=== PATIENT | female | born 1970 | race Hispanic/Latino ===

== ENCOUNTER 2022-09-24 18:04 | Emergency (ER) | payer OTHER ==
[~2022-09-24] VITALS: Ht 167.6 cm; Wt 75.1 kg
[2022-09-24] MEDS ORDERED: COZAAR25 MG PO (18:22)
[2022-09-24] MEDS ORDERED: LIPITOR40 MG PO (18:22)
[2022-09-24] MEDS ORDERED: METFORMIN HCL500 M2 PO (18:22)
[2022-09-24] MEDS ORDERED: MAXITROL EYE DRO5 ML OPTH (18:52)
[2022-09-24 19:18] VITALS: BP 156/99
== END 2022-09-24 19:19 | disposition home or self-care (01) ==
LOC: ED 18:04
DX: H20.9 Unspecified iridocyclitis (principal); I10 Essential (primary) hypertension; E11.9 Type 2 diabetes mellitus without complications; Z79.84 Long term (current) use of oral hypoglycemic drugs; Z79.899 Other long term (current) drug therapy
CPT/HCPCS: 96372; 99283; J0360

== ENCOUNTER 2022-11-27 16:06 | Emergency (ER) | payer OTHER ==
[~2022-11-27] VITALS: Ht 167.6 cm; Wt 74.8 kg
--- OUTSIDE RECORDS SUMMARY | ~2022-11-27 | XMS | Continuity of Care Document ---
Demographics + + + | Address | [address] | | | [place] [address] | + + + | Preferred Language | Unknown | + + + | Marital Status | Never | + + + | Religion Affiliation | Unknown | + + + | Race | White | + + + | Ethnic Group | or | + + + Author + + + | Author | [facility] | + + + | Organization | [facility] | + + + | Address | [address] | | | [place] [address] | + + + | Phone | | + + + Care Team Providers + + + + | Care Supervisor Wet End Name | Role | Phone | + + + + Unavailable | Unavailable | + + + + Unavailable | Unavailable | + + + + Allergies No information. Encounters No information. Functional Status No information. Immunizations No information. Medications No information. Problems + + + + | date | description | facility | + + + + | 2022-09-24 18:05 | TYPE 2 DIABETES MELLITUS | [facility] | | | WITHOUT COMPLICATIONS | | + + + + | 2022-09-24 18:05 | UNSPECIFIED IRIDOCYCLITIS | [facility] | + + + + | 2022-09-24 18:05 | OCULAR PAIN, LEFT EYE | [facility] | + + + + | 2022-09-24 18:05 | Essential (primary) | [facility] | | | hypertension | | + + + + | 2022-09-24 18:05 | SEAM PRESS OPERATOR (CURRENT) USE OF | [facility] | | | ORAL HYPOGLYCEMIC DRUGS | | + + + + | 2022-09-24 18:05 | OTHER CORRECTION (CURRENT) | [facility] | | | DRUG THERAPY | | + + + + | 2022-11-11 15:13:59 | Gaps In Care Outreach | [facility] | + + + + Procedures No information. Results/Labs No information. Social History +--------+ + + | date | description | facility | +--------+ + + Vital Signs No information."
--- OUTSIDE RECORDS SUMMARY | ~2022-11-27 | XMS | Continuity of Care Document ---
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 Results/Labs No information. Social History +--------+ + + | date | description | facility | +--------+ + + Vital Signs No information."
[~2022-11-27 16:06] MED LIST: COZAAR25 MG PO; LIPITOR40 MG PO; MAXITROL EYE DRO5 ML OPTH; METFORMIN HCL500 M2 PO
[2022-11-27 16:40] VITALS: BP 146/97
[2022-11-27] MEDS ORDERED: NORVASC10 MG PO (16:40)
== END 2022-11-27 16:40 | disposition home or self-care (01) ==
LOC: ED 16:06
DX: I10 Essential (primary) hypertension (principal); Z79.899 Other long term (current) drug therapy
CPT/HCPCS: 99283

== ENCOUNTER 2024-06-26 21:37 | Inpatient (IN) | payer OTHER ==
[~2024-06-26] VITALS: Ht 167.6 cm; Wt 87.4 kg
[~2024-06-26 21:37] MED LIST changes: +NORVASC10 MG PO
[2024-06-26] MEDS ORDERED: FUROSEMIDE80 MG PO (21:56)
[2024-06-26] MEDS ORDERED: POTASSIUM CHLO20 ME2 PO (21:57)
[2024-06-26 22:11] LABS: BASOPHILS 0.8 % (0-2); EOSINOPHILS 2.8 % (0-6); HEMATOCRIT 29.7 % (35.0-50.0); LYMPHOCYTES 26.6 % (24-44); MCH 25.8 (27-36); MCHC 33.8 g/dl (30-36); MCV 76.3 fl (81-99); MONOCYTES 9.2 % (0-12); NEUTROPHILS 60.6 % (39-80); PLATELET COUNT 269 K/uL (140-440); RBC 3.89 M/ul (4.3-5.7); RDW 15.7 (10.5-15.0)
[2024-06-26 22:38] LABS: ALBUMIN/GLOBULIN RATIO 0.41 (1.1-2.4); ANION GAP 9.9 (7-21); BILIRUBIN, TOTAL 0.3 mg/dL (0.2-1.0); BUN/CREATININE RATIO 15.97 (6.0-28.6); CALCIUM 8.4 mg/dL (8.5-10.1); CREATININE, SERUM 1.69 mg/dL (0.55-1.02); MAGNESIUM 2.1 mg/dL (1.8-2.4); POTASSIUM 3.9 mmol/L (3.5-5.1); PROTEIN, TOTAL 6.9 g/dL (6.4-8.2)
[2024-06-26] MEDS ORDERED: FUROSEMIDE 100 MG/10 ML VIAL IV ONE (22:45)
[2024-06-27] VITALS (27 sets, daily range): BP systolic 132–202; BP diastolic 72–100
--- NOTE | 2024-06-27 03:30 | NUR ---
PATIENT ARRIVED TO THE UNIT VIA STRETCHER. ABLE TO TRANSFER TO THE BED WITH 1PA. PATIENT AMBULATES WELL BUT REPORTS SOME DIFFICULTY DUE TO SWELLING AND PAIN IN HER LEGS. PATIENT IS AAOX. MILD SOB WITH ACTIVITY. TOLERATING 2L NC, TITRATED TO 1L NC. PATIENT HAS CRACKLES IN EDUARDO LOWER LOBES. OCCATIONAL NON-PRODUCTIVE COUGH. ABD IS TIGHT, BOWEL SOUNDS ACTIVE. DENIED NAUSEA. EDUARDO LOWER LEG EDEMA NOTED FROM KNEES DOWN. CMS INTACT. EDUARDO UPPER EXTREMITITES ARE SWOLLEN, LEFT MORE SO THAN THE RIGHT. PATIENT REPORTS SMALL IMPROVEMENT IN TIGHTNESS AND PAIN AFTER RECEIVING LASIX IN ED. IS AT BEDSIDE. ORIENTED PATIENT TO THE ROOM AND DISCUSSED PLAN OF CARE. PATIENT DENIED FURTHER NEEDS. CALL LIGHT IN REACH.
--- NOTE | 2024-06-27 05:39 | NUR ---
UPDATE PROVIDED TO
[2024-06-27] MEDS ORDERED: BUMETANIDE 1 MG/4 ML VIAL IV ONE ×2 (05:45→16:15)
[2024-06-27 06:00] LABS: BASOPHILS 0.6 % (0-2); EOSINOPHILS 3.8 % (0-6); HEMATOCRIT 27.4 % (35.0-50.0); HEMOGLOBIN 9.2 g/dL (12.0-18.0); LYMPHOCYTES 24.5 % (24-44); MCH 25.7 (27-36); MCHC 33.8 g/dl (30-36); MCV 76.1 fl (81-99); MONOCYTES 9.1 % (0-12); PLATELET COUNT 229 K/uL (140-440); RBC 3.59 M/ul (4.3-5.7); RDW 15.6 (10.5-15.0)
--- NOTE | 2024-06-27 06:00 | NUR ---
PATIENT UP TO THE BATHROOM. REQUIRES 1PA TO STEADY HERSELF. PATIENT VOIDED AND RETURNED TO SIT AT EDGE OF BED. DISCUSSED PLAN FOR ORDERED BUMEX AND PROVIDED EDUCATION. ALSO DISCUSSED OPTION TO USE PURE WIC WHILE PATIENT IS RESTING DUE TO HISTORY OF URGENCY AND CURRENT DIURETIC. PATIENT AGREES. PATIENT SAT UP TO EDGE OF BED FOR ABOUT 10 MINS; DURING THIS TIME PATIENT WAS TOLERATING ROOM AIR. Sp02 90-94%. PATIENT DENIED FEELING SOB. WHEN PATIENT LAID IN BED, WITH HOB AT 40 DEGREES. PATIENT DID DESAT TO 86 - 88%. 1L NC PLACED BACK ON PATIENT. PUREWIC PLACED PER PROTOCOL. PATIENT PROVIDED WITH SOME HOT TEA PER REQUEST. DENIED OTHER NEEDS. CALL LIGHT IN REACH.
[2024-06-27 06:19] LABS: ALBUMIN 1.8 g/dL (3.4-5.0); ALBUMIN/GLOBULIN RATIO 0.41 (1.1-2.4); ANION GAP 5.6 (7-21); BILIRUBIN, TOTAL 0.3 mg/dL (0.2-1.0); BUN/CREATININE RATIO 16.77 (6.0-28.6); CALCIUM 8.2 mg/dL (8.5-10.1); CREATININE, SERUM 1.49 mg/dL (0.55-1.02); POTASSIUM 3.6 mmol/L (3.5-5.1); PROTEIN, TOTAL 6.2 g/dL (6.4-8.2)
--- NOTE | 2024-06-27 06:42 | NUR ---
SHIFT SUMMARY NOTE Pt admitted to CCU this AM for ETOH W/D, hyponatremia, hypokalemia. Urine positive for amphetamines and THC. Urine pink-tinged, cloudy, frothy in appearence. CK 2890 this AM. This was discussed with , followed by orders to increase NS to 200ml/hr. Pt has also been having low grade fevers with T max of 99.8F, WBC 14.3. Concerning for infectious process, MD ordered IV ABX, initiated by RN. reports he is en route to see pt this AM. CIWA scores 14-16 this shift. Medicated per eMAR orders, see eMAR for details. Pt is diaphoretic (improved since admission to CCU), confused/disoriented, intermittently restless/agitated but able to follow some commands. Had 1 emesis this shift, coffee ground/brown in appearance. High aspiration/fall risk. Safety measures provided.
[2024-06-27] MEDS ORDERED: ACETAMINOPHEN 500 MG TAB PO ONE (07:45)
--- NOTE | 2024-06-27 08:35 | NUR ---
PT ASSISTED UP TO BED SIDE COMMODE, PT FOUND USING PUREWIK DIFFICULT MENTALLY TO URNIATE IN BED. VOID 1100ML. SOME DYSPNEA NOTED WITH MOVEMENT, PT DENIES WORSENING. PT C/O LEG PAIN AND HEADACHE. PRN TYLENOL ADMINISTERED. BREAKFAST PROVIDED, TENTATIVE PLAN OF CARE REVIEWED WITH PT AND . AWAITING FULL ADMISSION ORDERS. CALL LIGHT IN REACH.
--- NOTE | 2024-06-27 08:50 | NUR ---
VISITED DURING SPIRITUAL CARE ROUNDS. PT SUPPORTED BY SPOUSE IN ROOM; BOTH IN OVERALL GOOD SPIRITS; NO IMMEDIATE NEEDS. QUALITY HEAD PROVIDED SUPPORTIVE PRESENCE, HOSPITALITY, PRAYER, FACILITATED INTERACTION WITH THERAPY ANIMAL, FACILITATED CONNECTION WITH TICKET PRINTER. PT EXPRESSED GRATITUDE.
[2024-06-27] MEDS ORDERED: AMLODIPINE BESYLATE 10 MG TAB PO SCH (09:06)
[2024-06-27] MEDS ORDERED: hydrALAZINE HCL 20 MG/ML VIAL IV ONE (09:30)
[2024-06-27] MEDS ORDERED: ACETAMINOPHEN 325 MG TAB PO PRN (09:30)
[2024-06-27] MEDS ORDERED: ondansetron HCL 4 MG/2 ML VIAL IV PRN (09:30)
--- NOTE | 2024-06-27 09:30 | NUR ---
RN IN ROOM TO ROUND WITH MD - PT RESTING IN BED WITHOUT DISTRESS, AT BEDSIDE. PT STATES UNDERSTANDING OF PLAN OF CARE. MD MADE AWARE OF THIS RN CONCERN OF SKIN DISCOLORATION DISTAL TO LEFT WRIST IV SITE. SKIN DARK AND PATCHY, NON BLANCHABLE, PT DENIES PAIN OR ITCHYNESS. CONFIRMS NOT NORMAL FOR PT. IV SITE FLUSHES EASILY WITH BREAT BLOOD RETURN, NO SIGN OF INFILTRATION. NON PULSITILE BLOOD FLOW, RADIAL PULSE PALPATED APPROX 1/2 INCH MEDIAL FROM SITE. IV SITE D/C'D PER MD REQUEST. 2 FAILED ATTEMPTS FOR NEW START IN LEFT ARM BY THIS RN.
--- NOTE | 2024-06-27 09:38 | EKG ---
[facility] [address] [place], [place] [address] Signed Normal sinus rhythm Cannot rule out Anterior infarct , age undetermined Abnormal ECG No previous ECGs available Confirmed by Freda Renae MD ([id number]) on 06/27/2024 9:38:06 AM Electronically Signed By: FREDA RENAE MD 06/27/24 0938 PATIENT NAME: MODI SALLIE MARADIAGA Electrocardiogram DATE OF : 72 PHYSICIAN: FREDA RENAE MD REPORT #: [id number] REPORT IS CONFIDENTIAL AND NOT TO BE RELEASED WITHOUT AUTHORIZATION
[2024-06-27] MEDS ORDERED: ESCITALOPRAM OX20 MG PO (10:25)
[2024-06-27] MEDS ORDERED: LOSARTAN POTAS100 MG PO (10:26)
[2024-06-27] MEDS ORDERED: METFORMIN HCL500 MG PO (10:27)
[2024-06-27] MEDS ORDERED: ROSUVASTATIN CA20 MG PO (10:27)
[2024-06-27] MEDS ORDERED: CALCIUM 500-VI1 EAC6 PO (10:55)
[2024-06-27] MEDS ORDERED: INSULIN GL100 UNIT/2 SUB-Q (10:59)
[2024-06-27] MEDS ORDERED: PREDNISOLONE ACE5 ML OD (10:59)
--- NOTE | 2024-06-27 11:00 | NUR ---
MED REC COMPLETE
--- NOTE | 2024-06-27 11:24 | NUR ---
PT OFF UNIT TO CT
--- NOTE | 2024-06-27 11:55 | NUR ---
ECHO IN PROGRESS IN ROOM
[2024-06-27] MEDS ORDERED: PHARMACY RENAL DOSE ADJUSTMENT 1 DOSE MISC PO SCH (12:00)
[2024-06-27] MEDS ORDERED: DEXTROSE 50% 50 ML SYR IV PRN ×2 (12:45)
[2024-06-27] MEDS ORDERED: GLUCAGON,HUMAN RECOMBINANT 1 MG/ML VIAL SUB-Q PRN (12:45)
[2024-06-27] MEDS ORDERED: DEXTROSE 5% 1,000 ML IV PRN (12:45)
[2024-06-27] MEDS ORDERED: IBLOOD GLUCOSE TEST STRIP 1 EA TEST XX PRN (12:45)
--- NOTE | 2024-06-27 12:47 | NUR ---
UPDATED ON PT BP AND CT RESULTS. NEW ORDERS TO BE ENTERED BY MD PER MD.
[2024-06-27] MEDS ORDERED: niCARdipine HCL 50 MG in DEXTROSE 5% 250 ML IV SCH (13:00)
[2024-06-27] MEDS ORDERED: TRAMADOL HCL 50 MG TAB PO PRN (13:00)
--- NOTE | 2024-06-27 13:30 | NUR ---
PT MAINTAINING SPO2 ON ROOM AIR THIS AFTERNOON - LUNGS SOUNDS COURSE CRACKLES BILATERAL BASES. AMBULATING TO BED SIDE COMMODE TO VOID, WITHOUT DIFFICULTY AND PREFORMING OWN HYGEINE CARE. CARDINE GTT STARTED PER EMAR. PRN ULTRAM GIVEN FOR 6/10 HEADACHE AND LEG PAIN R/T SWELLING. PT DENIES FURTHER NEEDS AT THIS TIME. CALL LIGHT IN REACH.
--- NOTE | 2024-06-27 13:35 | NUR ---
INTO SEE PATIENT. PERSONAL HEALTH INFORMATION REVIEWED. PATIENT HAS NO STEPS INTO HER HOUSE. SHE LIVES WITH HER . HAS NO DME. DOES NOT DRIVE DUE TO HER EYESIGHT. PATIENT DENIES ANY DIFFCULTY PAYING UTLITIES OR OBTAINING FOOD. PATIENT DENIES ANY CM NEEDS AT THIS TIME.
--- NOTE | 2024-06-27 13:41 | NUR ---
UR CLINICAL REVEW: MCG, MEETS INPT FOR HEART FAILURE OXYGEN NEEDS, DIURETICS-IV, PLEURAL EFFUSIONS [facility] 06/27/24 @ 0927 ORDER MATCHES REG AUTH PENDING, WILL SEND CLINICALS VIA RIGHTFAX FOR REVIEW PLAN TO DC TO HOME WHEN MEDICALLY STABLE. 06/30/23
[2024-06-27] MEDS ORDERED: ESCITALOPRAM OXALATE 10 MG TAB PO SCH (14:36)
--- NOTE | 2024-06-27 16:09 | NUR ---
NICARDAPINE DRIP REMAINS AT 2.5MG/HR SINCE 1430, BP STABLE AT 140'S SYSTOLIC. PT RESTING IN BED WITHOUT DISTRESS - 2L 02 VIA NC NEEDED ONLY WHILE SLEEPING. CALL LIGHT IN REACH.
[2024-06-27] MEDS ORDERED: IBLOOD GLUCOSE TEST STRIP 1 EA TEST XX SCH (17:00)
[2024-06-27] MEDS ORDERED: INSULIN LISPRO 100 UNIT/ML ML SUB-Q SCH (17:00)
--- NOTE | 2024-06-27 17:40 | NUR ---
PT SITTING UP IN BED ON PHONE WITH DAUGHTER. DINNER PROVIDED, 1 UNIT INSULIN COVERAGE REQUIRED. BP WITHIN GOAL RANGE ON 2.5MG/HR NICARDAPINE GTT. PT DENIES NEED TO VOID AT THIS TIME. WILL CONTINUE TO MONITOR POST AFTERNOON BUMEX DOSE.
--- NOTE | 2024-06-27 19:40 | NUR ---
hand off report received from day shift RN. patient resting in bed with family at bedside, no needs at this time. call light in reach.
--- NOTE | 2024-06-27 20:15 | NUR ---
PATIENT ASSESSMENT COMPLETE. PATIENT SITTING UP AWAKE IN BED WITH FAMILY AT BEDSIDE. PATIENT DENIES ANY PAIN OR FEELING SOB AT THIS TIME. PATIENT ON 2L NC, TOLERATING WELL. PATIENT REMAINS ON NICARDIPINE GTT AT 2.5MG/HR. IV SITE WNL. PATIENT IS ALERT AND ORIENTED X4. PATIENT DENIES ANY NEEDS AT THIS TIME. CALL LIGHT IN REACH.
--- NOTE | 2024-06-27 20:48 | NUR ---
patient states she feels nauseous and is warm. patient provided with cold wash cloth and PRN Zofran given per EMAR. patient provided with tooth brush per request. patient at bedside. no further needs at this time. call light in reach.
[2024-06-27] MEDS ORDERED: INSULIN GLARGINE-YFGN 100 UNIT/ML ML SUB-Q SCH (21:00)
--- NOTE | 2024-06-27 23:06 | NUR ---
DR GUSTAFSON PROVIDED WITH UPDATE. NO NEW ORDERS AT THIS TIME.
--- NOTE | 2024-06-27 23:43 | NUR ---
PATIENT RESTING IN BED WITH EYES CLOSED, NO ACUTE DISTRESS NOTED. PATIENT REMAINS ON 2L NC, TOLERATING WELL. PATIENT AT BEDSIDE. NO NEEDS AT THIS TIME. CALL LIGHT IN REACH.
[2024-06-28] VITALS (37 sets, daily range): BP systolic 129–183; BP diastolic 76–96
--- NOTE | 2024-06-28 00:25 | NUR ---
NICARDIPINE GTT TITRATED OFF PER MEDICATION FLOWSHEET. PATIENT HAS NO FURTHER NEEDS AT THIS TIME. CALL LIGHT IN REACH.
--- NOTE | 2024-06-28 02:20 | NUR ---
PATIENT AWAKE IN BED. DENIES ANY NEEDS AT THIS TIME. PATIENT REMAINS AT BEDSIDE. CALL LIGHT IN REACH.
--- NOTE | 2024-06-28 03:05 | NUR ---
NICARDIPINE GTT TURNED BACK ON PER MEDICATION FLOWSHEET IN ORDER TO MAINTAIN BP GOAL. IV SITE WNL. PATIENT HAS NO FURTHER NEEDS AT THIS TIME. CALL LIGHT IN REACH.
[2024-06-28 05:31] LABS: BASOPHILS 0.6 % (0-2); EOSINOPHILS 4.2 % (0-6); HEMATOCRIT 28.8 % (35.0-50.0); HEMOGLOBIN 9.7 g/dL (12.0-18.0); LYMPHOCYTES 27.3 % (24-44); MCH 25.6 (27-36); MCHC 33.6 g/dl (30-36); MCV 76.3 fl (81-99); MONOCYTES 10.5 % (0-12); NEUTROPHILS 57.4 % (39-80); PLATELET COUNT 267 K/uL (140-440); RBC 3.78 M/ul (4.3-5.7); RDW 15.8 (10.5-15.0)
[2024-06-28 05:40] LABS: ANION GAP 5.8 (7-21); BUN/CREATININE RATIO 16.87 (6.0-28.6); CALCIUM 8.4 mg/dL (8.5-10.1); CREATININE, SERUM 1.6 mg/dL (0.55-1.02); POTASSIUM 3.8 mmol/L (3.5-5.1)
--- NOTE | 2024-06-28 05:48 | NUR ---
PATIENT REPORTS FEELING NAUSEOUS. PRN ZOFRAN GIVEN PER EMAR. PATIENT PROVIDED WITH FRESH ICE WATER. PATIENT UP TO BEDSIDE COMMODE TO VOID, STEADY ON FEET. PATIENT REMAINS ON NICARDIPINE GTT AT 2.5MG/HR. IV SITE WNL. PATIENT PROVIDED WITH COLD WASH CLOTH. PATIENT HAS NO FURTHER NEEDS AT THIS TIME. CALL LIGHT IN REACH.
[2024-06-28] MEDS ORDERED: LOSARTAN POTASSIUM 50 MG TAB PO SCH (06:12)
[2024-06-28] MEDS ORDERED: LOSARTAN POTASSIUM 100 MG TAB PO SCH (06:15)
--- NOTE | 2024-06-28 07:03 | NUR ---
NICARDIPINE GTT TITRATED OFF PER MEDICATION FLOWSHEET. PATIENT BP STABLE. PATIENT HAS NO FURTHER NEEDS AT THIS TIME. CALL LIGHT IN REACH.
[2024-06-28] MEDS ORDERED: BUMETANIDE 1 MG/4 ML VIAL IV ONE (08:15)
[2024-06-28] MEDS ORDERED: ENOXAPARIN SODIUM 40 MG/0.4 ML SYR SUB-Q SCH (09:00)
--- NOTE | 2024-06-28 09:25 | NUR ---
IN PATIENT'S ROOM FOR AM ASSESSMENT, VITALS AND DEVELOPMENT PROFESSIONAL. PATIENT AWAKE, C/O HEADACHE AND SOME ABD PAIN. PRN TYLENOL GIVEN FOR H/A. EDUCATION PROVIDED ON HOLLAND'S CURRENT CONDITION, SHE DID NOT QUITE UNDERSTAND THE CAUSE OF HER SWELLING IN HER LEGS AND LEFT ARM. EXPLAINED THAT WE ARE AWAITING RESULTS OF HER ECHO, AND STILL NEEDING TO KEEP HER BLOOD PRESSURE UNDER CONTROL TO AVOID OVERSTRESSING HER HEART. CBG 83 AND NO INSULIN NEEDED.PATIENT ON 1 L NC AND SP02 IN THE HIGH 90s. PHYS THERAPY NOW IN ROOM AND HELPING PATIENT TO WALK. STANDING WEIGHT 97.7 KG. PATIENT'S RIGHT HAND REMAINS REDDISH/PURPLEISH COMPARED TO THE REST OF HER ARM AND OTHER BODY COLOR. SKIN DOES NOT EASILY RICARDA ON TOP OF HAND, BUT CAP REFILL IN NAIL BEDS IS BRISK. SKIN APPEARS SLIGHTLY BLOTCHY, WITH SOME SMALL WHITE AREAS NOTED. PATIENT REPORTS THAT SHE HAD SOMETHING SIMILAR HAPPEN ON HER LOWER LEGS "A WHILE AGO" AND THAT IT LOOKED SIMILAR TO HOW HER HAND LOOKS NOW, AND SHE DESCRIBED IT LIKE "PUZZLE PIECES" ALL OVER HER LEGS. SHE REPORTS THAT THESE DISCOLORATIONS WERE NON PAINFUL AND JUST WENT AWAY ON THEIR OWN. RADIAL PULSE IS EASILY PALPABLE ON RIGHT WRIST, SIMILAR IN STRENGTH TO LEFT WRIST. NO IV SITE PRESENT ON RIGHT SIDE.
--- NOTE | 2024-06-28 09:35 | NUR ---
PT NOT AVAILABLE FOR VISIT. PROVIDED PRAYER.
--- NOTE | 2024-06-28 10:15 | NUR ---
Patient awake, alert and oriented x3, no acute distress. Patient requesting to shower this morning. Shower set up for patient at this time. Patient assisted to shower area, instructions provided regarding shower set up. Patient reports she would like to shower independently, instructions provided to call when she is done so I can help her get dressed-pt reports her understanding.
--- NOTE | 2024-06-28 11:04 | NUR ---
PHYS THERAPY/OT IN ROOM TO SEE PATIENT. PT TOLERATED WELL.
--- NOTE | 2024-06-28 11:18 | NUR ---
ALERT AND ORIENTED IN BED. PLAN TO DC TO HOME WHEN MEDICALLY READY, NO CM NEEDS AT THIS TIME.
[2024-06-28] MEDS ORDERED: hydrALAZINE HCL 20 MG/ML VIAL IV PRN (12:45)
--- NOTE | 2024-06-28 13:21 | NUR ---
PATIENT BACK IN BED AFTER EATING LUNCH. PATIENT VOIDED IN TOILET UNMEASURED X1. PATIENT REMAINS ON ROOM AIR. ERA HOSE AND SCDs APPLIED TO LOWER LEGS AND INSTRUCTED ON REASONS FOR USE. PATIENT AGREEABLE AND EXCITED TO WEAR THEM. AGAIN, PATIENT SEEMING TO GRASP UNDERSTANDING THAT THERE IS SOMETHING WITH HER HEART GOING ON, AND ASKS SOME SIMILAR QUESTIONS SHE DID THIS AM. PT'S BROTHER ARRIVES AND ASKS, "WHAT DOES SHE HAVE?" EXPLAINED TO PATIENT'S BROTHER HER CURRENT DIAGNOSIS AND TREATMENTS SHE IS UNDERGOING. PRN HYDRALAZINE GIVEN FOR BP 173/95 (118). PT INSTRUCTED TO USE CALL LIGHT BEFORE GETTING UP SHE IS ATTACHED TO SCD PUMP. PT AGREEABLE. CALL LIGHT WITHIN REACH. PRN TRAMADOL GIVEN FOR 6/10 HEADACHE.
[2024-06-28] MEDS ORDERED: AMLODIPINE BESYLATE 10 MG TAB PO SCH (15:08)
--- NOTE | 2024-06-28 15:45 | NUR ---
DR. MARIEE IN TO SEE PATIENT AND DISCUSSES WITH HER THE RESULTS OF HER ECHO. MD ALSO ASSESSES RIGHT HAND THAT REMAINS DISCOLORED. SKIN MARKER USED TO PHILIPPE AROUND EDGES OF DISCOLORATION. PATIENT STILL DENYING ANY PAIN IN HAND, NO SWELLING EVIDENT AND PULSES REMAIN EASILY PALPABLE. SKIN DOES NOT RICARDA ON TOP OF HAND, BUT NAIL BEDS HAVE NORMAL APPEARING CAP REFILL. HOME DOSE OF AMLODIPINE STARTED WELL. PATIENT STATES PAIN IS NOW 0/10 AFTER TRAMADOL FOR HEADACHE. PT'S NOT IN ROOM AT THIS TIME. PT ON 1 L WHILE SLEEPING/RESTING. SCDs AND ERA JUAREZ ON.
--- NOTE | 2024-06-28 19:45 | NUR ---
handoff report received from day shift RN. patient resting in bed with eyes closed, no distress noted. patient remains on 1L NC, tolerating well. this rn allows patient to rest at this time. at bedside. call light in reach.
[2024-06-28] MEDS ORDERED: INSULIN GLARGINE-YFGN 100 UNIT/ML ML SUB-Q SCH ×2 (21:00→22:15)
--- NOTE | 2024-06-28 21:29 | NUR ---
PATIENT NAUSEOUS IN BED, PRN ZOFRAN GIVEN PER EMAR. PATIENT PROVIDED WITH COLD WASH CLOTH. NO FURTHER NEEDS AT THIS TIME. CALL LIGHT IN REACH.
--- NOTE | 2024-06-28 21:50 | NUR ---
DR MARIEE ON UNIT AND PROVIDED UPDATE
--- NOTE | 2024-06-28 22:15 | NUR ---
patient ambulates to bathroom to void and brush teeth then back to bed. patient steady on feet. no further needs at this time. call light in reach.
[2024-06-29] VITALS (15 sets, daily range): BP systolic 138–184; BP diastolic 78–99
--- NOTE | 2024-06-29 00:33 | NUR ---
patient resting in bed with eyes closed, respirations even and unlabored. patient remains on 1L NC, spo2 93%. patient SCD'S and ERA hose in place. patient vital signs stable. no needs at this time. call light in reach.
--- NOTE | 2024-06-29 03:25 | NUR ---
patient awake and states she is having 8/10 abdominal pain. PRN tylenol given per EMAR. patient has no further needs at this time. call light in reach.
[2024-06-29 06:02] LABS: BASOPHILS 0.5 % (0-2); HEMOGLOBIN 9.3 g/dL (12.0-18.0); LYMPHOCYTES 22.2 % (24-44); MCH 25.6 (27-36); MCHC 33.3 g/dl (30-36); MCV 76.9 fl (81-99); MONOCYTES 9.7 % (0-12); NEUTROPHILS 64.6 % (39-80); PLATELET COUNT 264 K/uL (140-440); RBC 3.64 M/ul (4.3-5.7); RDW 15.5 (10.5-15.0)
[2024-06-29 06:14] LABS: ANION GAP 6.7 (7-21); BUN/CREATININE RATIO 14.11 (6.0-28.6); CALCIUM 8.2 mg/dL (8.5-10.1); CREATININE, SERUM 1.7 mg/dL (0.55-1.02); POTASSIUM 3.7 mmol/L (3.5-5.1)
[2024-06-29 06:17] LABS: BILIRUBIN, URINE NEGATIVE (negative); BLOOD/HGB, URINE SMALL (Negative); KETONE, URINE NEGATIVE (Negative); LEUK ESTERASE, URINE NEGATIVE (negative); NITRITE, URINE NEGATIVE (negative)
[2024-06-29 06:26] LABS: BACTERIA, URINE RARE /hpf (negative); CASTS, URINE NONE SEEN \\lpf; CRYSTALS, URINE NONE SEEN (0-1+); EPITHELIAL CELLS, URINE SQUAMOUS 4+ /lpf (0-1+)
[2024-06-29 06:27] LABS: COLLECTION TYPE, URINE CLEAN CATCH; REFLEX CULTURE, URINE No (No)
--- NOTE | 2024-06-29 06:55 | NUR ---
patient blood glucose noted to be 57 on morning labs. this rn in room to check BS. blood glucose reading 52. patient asymptomatic. patient provided with juice and given Dextrose 50% 25ml per EMAR. after 15 minutes passed blood sugar rechecked and 106.
--- NOTE | 2024-06-29 09:27 | NUR ---
UR CONCURRENT/CLINICAL REVEW: MCG, MEETS INPT FOR HEART FAILURE VARIANCE FOR GL DAY 2 ENTERED OXYGEN NEEDS, DIURETICS-IV, PLEURAL EFFUSION [facility] 06/27/24 @ 0927 ORDER MATCHES REG AUTH PENDING, WILL SEND CLINICALS VIA RIGHTFAX FOR REVIEW PLAN TO DC TO HOME WHEN MEDICALLY STABLE. 07/03/23
--- NOTE | 2024-06-29 09:53 | NUR ---
PATIENT SLEEPING. NO CM NEEDS. ALLOWED TO REST AT THIS TIME.
--- NOTE | 2024-06-29 10:52 | NUR ---
PHY THERAPY AND OT IN ROOM WORKING WITH PATIENT. PATIENT ON ROOM AIR AT THIS TIME. WILL CONTINUE TO MONITOR.
--- NOTE | 2024-06-29 11:10 | NUR ---
VISITED DURING SPIRITUAL CARE ROUNDS. PT SUPPORTED BY FAMILY IN ROOM. ALL IN RELATIVELY GOOD SPIRITS, NO IMMEDIATE NEEDS. DRY CLEANER APPRENTICE PROVIDED SUPPORTIVE PRESENCE, HOSPITALITY, PRAYER, FACILITATED INTERACTION WITH THERAPY ANIMAL. PT EXPRESSED GRATITUDE, ZHENG.
--- NOTE | 2024-06-29 13:31 | NUR ---
PATIENT C/O ABD DISCOMFORT AFTER HAVING 3 EPISODES FAIRLY CLOSE TOGETHER OF SOME LOOSER STOOL. PRN ZOFRAN GIVEN. WILL CONTINUE TO MONITOR.
[2024-06-29] MEDS ORDERED: BUMETANIDE 1 MG/4 ML VIAL IV SCH (14:16)
[2024-06-29] MEDS ORDERED: DILUENT IV SCH (14:45)
[2024-06-29] MEDS ORDERED: BUMETANIDE IV SCH (14:45)
--- NOTE | 2024-06-29 15:02 | NUR ---
DR. MARIEE IN TO SEE PATIENT AND PLAN OF CARE DISCUSSED. PATIENT TO BE GIVEN ANOTHER BUMEX DOSE AND A BUMEX GTT TO BE STARTED. PATIENT TO ALSO RECEIVE SANDERS CATH FOR ACCURATE I/O MEASUREMENT AND HELP WITH BATHROOM TRIPS SINCE SHE WILL BE ON CONTINUOUS IV BUMEX GTT. PATIETN AGREEABLE TO THIS PLAN AND STATES, "I JUST WANT TO GET BETTER." PT'S HAND ALSO EVALUATED AGAIN BY DR. MARIEE TODAY AND THINKS HER HAND APPEARS SLIGHLTY IMPROVED IN COLOR. PT STILL DOES NOT C/O ANY PAIN, ITCHING, SWELLING OR ANY OTHER CONCERNS. PT'S LEFT ARM IS MORE EDEMATOUS TODAY THOUGH AND WILL MAKE AN EFFORT TO KEEP THIS ARM ELEVATED ABOVE HEART.
[2024-06-29] MEDS ORDERED: LIDOCAINE 2% VISCOUS 6 ML SYR TOP ONE (15:30)
--- NOTE | 2024-06-29 18:48 | NUR ---
PATIENT TOLERATED SANDERS CATH INSERTION WELL AND REMAINS ON BUMEX GTT AT 0.5 MG/HR= 2 ML/HR. PATIENT HAS HAD 1225 ML OUT OF SANDERS SINCE INSERTION. PT'S GERMANIA IN ROOM. PT REMAINS ON 1 L NC WHILE RESTING BUT WHEN AWAKE DOES NOT NEED IT. KEEPING LEFT ARM ELEVATED TO HELP WITH SWELLING.
--- NOTE | 2024-06-29 19:50 | NUR ---
HANDOFF REPORT RECEIVED FROM DAY SHIFT RN. PATIENT LAYING AWAKE IN BED WITH AT BEDSIDE. PATIENT REMAINS ON 1L NC, TOLERATING WELL. PATIENT PROVIDED WITH FRESH ICE WATER. NO FURTHER NEEDS AT THIS TIME. CALL LIGHT IN REACH.
[2024-06-29 20:29] LABS: ANION GAP 2.6 (7-21); BUN/CREATININE RATIO 13.63 (6.0-28.6); CALCIUM 8.2 mg/dL (8.5-10.1); CREATININE, SERUM 1.76 mg/dL (0.55-1.02); POTASSIUM 3.6 mmol/L (3.5-5.1)
--- NOTE | 2024-06-29 20:32 | NUR ---
PATIENT ASSESSMENT COMPLETE. PATIENT LAYING AWAKE IN BED WATCHING TV. PATIENT ON 1L NC, TOLERATING WELL. DENIES ANY SOB, NAUSEA, OR PAIN AT THIS TIME. PATIENT REMAINS ON BUMEX GTT AT 0.5MG/HR. PATIENT IV SITE WNL. PATIENT SANDERS CATH INTACT, SANDERS CARE DONE. ERA HOSE AND SCD'S REMAIN ON. PATIENT HAS NO NEEDS AT THIS TIME. GERMANIA REMAINS AT BEDSIDE. CALL LIGHT IN REACH.
[2024-06-29] MEDS ORDERED: INSULIN GLARGINE-YFGN 100 UNIT/ML ML SUB-Q SCH (21:00)
--- NOTE | 2024-06-29 21:51 | NUR ---
DR MARIEE CALLED AND PROVIDED WITH UPDATE. NO NEW ORDERS AT THIS TIME.
[2024-06-30] VITALS (24 sets, daily range): BP systolic 148–193; BP diastolic 79–100
--- NOTE | 2024-06-30 00:55 | NUR ---
PATIENT RESTING IN BED WITH EYES CLOSED, RR 15. NO ACUTE DISTRESS NOTED. PATIENT HAS NO NEEDS AT THIS TIME. CALL LIGHT IN REACH.
--- NOTE | 2024-06-30 01:05 | NUR ---
DR MARIEE CALLED THE UNIT AND PROVIDED WITH AN UPDATE. NEW ORDER RECEIVED TO STOP BUMEX GTT.
[2024-06-30] MEDS ORDERED: BUMETANIDE IV SCH (01:30)
[2024-06-30] MEDS ORDERED: DILUENT IV SCH (01:30)
--- NOTE | 2024-06-30 03:05 | NUR ---
patient resting in bed with eyes closed, respirations even and unlabored. patient remains on 1L NC, spo2 97%. patient rodriguez intact. patient IV site WNL and remains saline locked. patient has no needs at this time. Javi remains at bedside. call light in reach.
[2024-06-30 05:36] LABS: BASOPHILS 0.6 % (0-2); EOSINOPHILS 4.2 % (0-6); HEMATOCRIT 27.9 % (35.0-50.0); HEMOGLOBIN 9.3 g/dL (12.0-18.0); LYMPHOCYTES 24.9 % (24-44); MCH 25.4 (27-36); MCHC 33.4 g/dl (30-36); MONOCYTES 9.9 % (0-12); NEUTROPHILS 60.4 % (39-80); PLATELET COUNT 259 K/uL (140-440); RBC 3.67 M/ul (4.3-5.7); RDW 15.8 (10.5-15.0)
[2024-06-30 05:43] LABS: ANION GAP 3.5 (7-21); BUN/CREATININE RATIO 13.18 (6.0-28.6); CALCIUM 8.4 mg/dL (8.5-10.1); CREATININE, SERUM 1.82 mg/dL (0.55-1.02); POTASSIUM 3.5 mmol/L (3.5-5.1)
--- NOTE | 2024-06-30 06:05 | NUR ---
patient states she has a headache that is 7/10 pain. PRN Ultram given per EMAR. patient provided with fresh ice water. patient denies any nausea or feeling SOB. patient has no further needs at this time. call light in reach.
--- NOTE | 2024-06-30 07:45 | NUR ---
REPORT RECIEVED FROM NIGHT ANN KELLY. PATIENT RESTING IN BED ON MONITOR. PATIENT CALLS APPROPRIATELY. PER PATIENT HEADACHE FROM THIS AM IN SLIGHTLY IMPROVED WITH MEDICATION. CALL LIGHT IN REACH. BED IN LOWEST POSITION.
--- NOTE | 2024-06-30 08:35 | NUR ---
clampped pt rodriguez for retroperitoneal us per xray staff. bs check 122 no insulin given.
--- NOTE | 2024-06-30 09:15 | NUR ---
CALL PLACED TO [facility] FOR STROKE CONSULT. FACE SHEET FAXED.
--- NOTE | 2024-06-30 09:30 | NUR ---
STAFF IN WITH PATIENT AND MD THIS AM DURING MORNING ROUNDS AT 0825. PATIENT ALERT ORIENTED ABLE TO USE ALL EXTREMITIES AND ABLE TO SIT UP WELL WITH NO ISSUES. OTHER RN IN TO GIVE NAUSEA MEDICATIONS AT 0830. THIS RN BACK TO SEE PATIENT AT 0840 AND PATIENT REPORTS NASUEA IS STARTING TO IMPROVE. AT 0855 STAFF NOTIFIED THAT PATIENT FEELS VERY DIZZY BY CLINICAL GENETICIST WHO WAS AT THE PATIENT BEDSIDE. THIS RN IN TO ASSESS AND NOTIFIED MD OF SUDDEN CHANGES IN PATIENT. PATIENT UNABLE TO LIFT ARMS/ LEGS AGAINST GRAVITY. LEFT SIDE APPEARS SLIGHT MORE WEAK THAN RIGHT SIDE. MD AT THE BEDSIDE TO DO ASSESSMENT. PATIENTS SPEECH CONTINUED TO WORSEN AND DIFFICULTY SPEAKING NOTED, PATIENT REPORTS ON GOING DIZZINESS, PATIENT VISION BLURRY. A CODE STOKE WAS CALLED. PATIENTS BLOOD SUGAR WAS 122. VITALS REMAINED UNCHANGED FROM AVERAGE VITALS. THIS RN, STUDENT RN, AND MD WITH PATIENT TO CT. PATIENT BACK IN ROOM AND NEUROLOGIST ON THE TELE ROBOT FOR CONSULT. PER CONSULT AN MRI WAS RECOMMENED BUT PROVIDER DOES FEEL THOUGH THIS IS NOT A STROKE. WILL MONITOR PATIENT FOR CHANGES. PER MD HOLD ALL MEDICATIONS THIS AM.
[2024-06-30 09:39] LABS: BASOPHILS 0.6 % (0-2); EOSINOPHILS 2.1 % (0-6); HEMATOCRIT 30.3 % (35.0-50.0); HEMOGLOBIN 10.2 g/dL (12.0-18.0); LYMPHOCYTES 24.1 % (24-44); MCH 25.5 (27-36); MCHC 33.8 g/dl (30-36); MCV 75.5 fl (81-99); MONOCYTES 9.3 % (0-12); NEUTROPHILS 63.9 % (39-80); PLATELET COUNT 257 K/uL (140-440); RBC 4.02 M/ul (4.3-5.7); RDW 15.4 (10.5-15.0)
[2024-06-30 10:06] LABS: ALBUMIN 1.9 g/dL (3.4-5.0); ALBUMIN/GLOBULIN RATIO 0.39 (1.1-2.4); ANION GAP 10.5 (7-21); BILIRUBIN, TOTAL 0.4 mg/dL (0.2-1.0); BUN/CREATININE RATIO 13.87 (6.0-28.6); CALCIUM 8.4 mg/dL (8.5-10.1); CREATININE, SERUM 1.73 mg/dL (0.55-1.02); POTASSIUM 3.5 mmol/L (3.5-5.1); PROTEIN, TOTAL 6.8 g/dL (6.4-8.2)
--- NOTE | 2024-06-30 10:30 | NUR ---
PATIENTS SYSMPTOMS ARE CONTINUING TO IMPROVE AT THIS TIME. PATIENT SPEECH AND VISION ARE BETTER. PATIENT DOES REPORT STILL FEELING WEAK OVERALL. THIS RN AND STUDENT RN WITH PATIENT TO MRI.
--- NOTE | 2024-06-30 11:30 | NUR ---
ERA JUAREZ AND SCD'S BACK IN PLACE. PATIENT RESTING IN BED ON MONITOR.
--- NOTE | 2024-06-30 11:40 | NUR ---
THIS RN CALLED AND UPDATED PATIENTS DAUGHTER OPAL OF PATIENTS CHANGES THAT OCCURED THIS AM AND PLAN OF CARE UPDATES. PATIENT IS DOING MUCH BETTER AT THIS TIME. STUDENT RN AT THE BEDSIDE TO ASSIST IN AM CARE/ PATIENT BRUSHING HER TEETH AND WASHING HER FACE AND FIXING HAIR. PATIENT ALERT AND ORIENTED AND INVOLVED IN CARE. PATIENT STATES SHE FEELS SLIGHTLY HEAVY IN HER EXTREMITITES BUT SIGNIFICANTLY IMPROVED FROM PRIOR SYMPTOMS. AWAITING RESULTS OF MRI.
--- NOTE | 2024-06-30 13:31 | NUR ---
Planned on see Rhea today and doing education on CHF. Pt had a code stroke today and Pt nurse wants to wait on the CHF education at this time. Will check with pt nurse before leaving today to see if education can be completed or if it needs to wait until pt is feeling better.
--- NOTE | 2024-06-30 13:41 | NUR ---
INTO SEE PATIENT. PATIENT RESTING WITH BROTHER AND SISTER IN LAW AT BEDSIDE. PATIENT STILL GOING HOME WITH WHEN MEDICALLY CLEARED. NO FUTHER CM NEEDS AT THIS TIME.
--- NOTE | 2024-06-30 14:00 | NUR ---
MD NOTIFIED THAT MRI AND KIDNEY ULTRASOUND RESULTS WERE BACK. UPDATED OF PATIENTS BLOOD PRESSURES WITH SEVERAL BEING 190'S-200 SYSTOLIC AND NOW BACK DOWN TO 170-180 SYSTOLIC. PATIENT UPDATED ON PLAN OF CARE. PATIENT REPORTS MILD VISION CHANGES OF BLURRINESS BUT AIGNIFICANTLY IMPROVED FROM PRIOR EPISODE AND MILD HEAVINESS FEELING IN HER ARMS AND LEGS. MD AWARE.
--- NOTE | 2024-06-30 16:00 | NUR ---
MD STOPPED IN TO SEE PATIENT AND REVIEWED [facility] CARE AND RESULTS WITH PATIENT AND HER . ALL QUESTIONS ANSWEREED. WILL CONTINUE TO HOLD BP MEDICATIONS AND DIURETICS. WILL NOTIFY MD IF PRESSURE INCREASE OVER 200'S SYSTOLIC. PATIENT DENIES HEADACHE AT THIS TIME.
--- NOTE | 2024-06-30 17:45 | NUR ---
PATIENTS FAMILY AT THE BEDSIDE AND UPDATED ON PLAN OF CARE. PATIENT BLOOD SUGAR CHECKED AND NO INSULIN NEEDED. PATIENT EATING DINNER. NO OTHER NEEDS AT THIS ITME. PATIENT AND FAMILY VERY APPRECIATIVE OF CARE.
--- NOTE | 2024-06-30 20:00 | NUR ---
PATIENT RESTING IN BED. VISITING WITH FAMILY. DENIES PAIN, SOB OR NAUSEA. TOLERATING 2L NC. LUNG SOUNDS ARE CLEAR. ABD IS DISTENDED AND FIRM. BOWEL SOUNDS ACTIVE. PATIENT REPORTS FEELING TIRED BUT OTHERWISE FEELS WELL. IV SITE WNL X2. 2+ EDEMA NOTED IN LEFT ARM. RIGHT ARM NO NOTABLE EDEMA. RIGHT HAND CONTINUES TO BE PURPLE/RED. CMS INTACT. DISCOLORATION WITHIN THE ORIGINAL MARKED LINES. PATIENT DENIED PAIN OR TINGLING IN RIGHT HAND. SANDERS IN PLACE; DRAINING FREELY. ERA JUAREZ AND SCDS ON EDUARDO LOWER EXTREMITIES.
[2024-06-30] MEDS ORDERED: CEFTRIAXONE SODIUM 2 GM in SODIUM CHLORIDE 0.9% 100 ML IV SCH (21:00)
[2024-06-30] MEDS ORDERED: AZITHROMYCIN 500 MG in DEXTROSE 5% 250 ML IV SCH (21:00)
--- NOTE | 2024-06-30 21:18 | NUR ---
ABX STARTED PER ORDER. ACCU CHECK AND SSI. PATIENT CONTINUES TO VISIT WITH FAMILY. DENIES ANY CONCERNS OR NEEDS. CALL LIGHT IN REACH.
--- NOTE | 2024-06-30 22:52 | NUR ---
PATIENT UP TO THE BSC TO HAVE BM. PATIENT ABLE TO TRANSFER WITH MINIMAL ASSISTANCE. PATIENT RETURNED TO BED AFTER BM. REPORTS STOMACH CRAMPING BUT NOT PAINFUL. PATIENT REPORTS CHRONIC LOOSE STOOLS. THIS STOOL WAS SOFT, NOT LIQUID. PATIENT ASSISTED TO POSITION FOR COMFORT. CALL LIGHT IN REACH.
--- NOTE | 2024-06-30 22:57 | EKG ---
[facility] [address] [place] [address] Signed Normal sinus rhythm Possible Left atrial enlargement Prolonged QT Abnormal ECG When compared with ECG of 26-JUN-2024 22:18, No significant change was found Confirmed by Deniz Mariee MD () on 06/30/2024 10:57:24 PM Electronically Signed By: DENIZ MARIEE MD 06/30/24 2257 PATIENT NAME: SALLIE MONSALVE Electrocardiogram DATE OF : 72 PHYSICIAN: DENIZ MARIEE MD REPORT #: [id number] REPORT IS CONFIDENTIAL AND NOT TO BE RELEASED WITHOUT AUTHORIZATION
[2024-07-01] VITALS (23 sets, daily range): BP systolic 142–197; BP diastolic 75–95
--- NOTE | 2024-07-01 00:15 | NUR ---
patient appears restful in bed. wakes easily to voice. patient denied any concerns. neruo status unchanged. call light in reach. vs stable.
--- NOTE | 2024-07-01 02:00 | NUR ---
rodriguez emptied. patient appears restful, eyes closed. vs stable. allowed patient to rest. call light in reach. family at bedside.
--- NOTE | 2024-07-01 05:00 | NUR ---
LAB IN FOR MORNING DRAW. PATIENT WAKES EASILY. PATIENT VS STABLE. TOLERATING 1L NC. PATIENT DENIED GI UPSET OR PAIN. NEURO STATUS UNCHANGED. AAOX4. PATIENT REPORTS FEELING TIRED BUT OTHERWISE WELL. SANDERS EMPTIED. PATIENT DENIED OTHER NEEDS. CALL LIGHT IN REACH.
[2024-07-01 05:22] LABS: BASOPHILS 0.4 % (0-2); EOSINOPHILS 3.3 % (0-6); HEMATOCRIT 26.2 % (35.0-50.0); HEMOGLOBIN 8.8 g/dL (12.0-18.0); LYMPHOCYTES 24.2 % (24-44); MCH 25.5 (27-36); MCHC 33.5 g/dl (30-36); MONOCYTES 12.1 % (0-12); PLATELET COUNT 230 K/uL (140-440); RBC 3.45 M/ul (4.3-5.7); RDW 15.3 (10.5-15.0)
[2024-07-01 05:36] LABS: ANION GAP 5.6 (7-21); BUN/CREATININE RATIO 14.68 (6.0-28.6); CALCIUM 8.2 mg/dL (8.5-10.1); CHOLESTEROL/HDL RATIO 2.6; CREATININE, SERUM 1.77 mg/dL (0.55-1.02); POTASSIUM 3.6 mmol/L (3.5-5.1)
--- NOTE | 2024-07-01 07:50 | NUR ---
REPORT RECIVED FROM BELLHOP CAPTAIN RN. PATIENT RESTING IN BED [facility] 1L [place]. PATIENTS AT THE BEDSIDE. PATIENT ON MONITOR. CALL LIGHT IN REACH. NO OTHER NEEDS AT THIS TIME.
--- NOTE | 2024-07-01 09:30 | NUR ---
TALKED WITH PATIENT THIS MORNING. STILL PLANNING ON D/C TO HOME WHEN MEDICALLY SAFE TO DISCHARGE. NO QUESTIONS OR FUTHER CM NEEDS AT THIS TIME.
--- NOTE | 2024-07-01 09:30 | NUR ---
RN AND PROVIDER IN TO SEE PATIENT AND REVIEW PLAN OF CARE. PATIENT UP TO THE CHAIR FOR BREAKFAST AND STANDING WEIGHT WAS OBTAINED. PATIENT PLAN OF CARE REVIEWED WITH PATIENT AND FAMILY. PATIENT ATE 100% BREAKFAST. PATIENT ON FLUID RESTRICTION AND FOLLOWS RESTRICTIONS WELL. PER MD WILL GIVE BP CONTROL MEDICATIUOSN TODAY AND BUMEX PUSH. PER MD DO NOT GIVE BUMEX GTT INFUSION. MD WILL FOLLOW UP WITH RADIOLOGIST OF RENAL ULTRASOUND.
[2024-07-01] MEDS ORDERED: BUMETANIDE 1 MG/4 ML VIAL IV SCH (10:00)
--- NOTE | 2024-07-01 10:00 | NUR ---
PATIENT ON 1L NC AND SPO2 97-100%. TURNED OFF AND SHORTLY AFTER PATIENTS SPO2 87-91%. SPOKE WITH RT AND THEY WILL BRING IS/ AQAPELLA FOR PATIENT TO WORK WITH. SPATIENTS SPO2 DECREASED TO 85% AND WAS PLACED BACK ON 1L. SPO2 NOW 97%.
[2024-07-01] MEDS ORDERED: hydroCHLOROthiazide 25 MG TAB PO SCH (10:03)
--- NOTE | 2024-07-01 11:30 | NUR ---
PATIENT WORKING WITH PHYSICAL THERAPY. PATIENT WALKING THE JOHNSON IN THE CCU.
--- NOTE | 2024-07-01 12:45 | NUR ---
PATIENT UP EATING LUNCH WITH HER FAMILY AT THE BEDSIDE. NO QUESTIONS AT THIS TIME. CALL LIGHT IN REACH. PATIENTS LEGS ELEVATED IN CHAIR AND ARM ON 2 PILLOWS PER MD TO KEEP ELEVATED. OT WILL BE IN TO WORK WITH PATIENT AND PROVIDE FURTHER TEACHIN ON WAYS TO HELP SWELLING IN HER LEFT ARM.
--- NOTE | 2024-07-01 14:20 | NUR ---
UPDATED MD OF PATIENTS VITAL TREND, STATUS, AND URINE OUTPUT. PATIENT IS UP IN THE CHAIR WITH FAMILY AT THE BEDSIDE. WILL GIVE NEXT DOSE OF BUMEX PER MD SEE EMAR. PER MD NO RESUTS OF RENAL ULTRASOUND FROM RADIOLOGIST HAVE BEEN ADDED TO THE EXAM. WILL FOLLOW-UP WITH RADIOLOGY STAFF.
[2024-07-01 15:06] LABS: BASOPHILS 0.6 % (0-2); EOSINOPHILS 3.9 % (0-6); HEMATOCRIT 28.7 % (35.0-50.0); HEMOGLOBIN 9.7 g/dL (12.0-18.0); LYMPHOCYTES 23.4 % (24-44); MCH 25.8 (27-36); MCHC 33.9 g/dl (30-36); MCV 76.1 fl (81-99); MONOCYTES 11.3 % (0-12); NEUTROPHILS 60.8 % (39-80); PLATELET COUNT 242 K/uL (140-440); RBC 3.77 M/ul (4.3-5.7); RDW 15.6 (10.5-15.0)
[2024-07-01 15:19] LABS: ANION GAP 3.5 (7-21); BUN/CREATININE RATIO 15.56 (6.0-28.6); CALCIUM 8.4 mg/dL (8.5-10.1); CREATININE, SERUM 1.67 mg/dL (0.55-1.02); POTASSIUM 3.5 mmol/L (3.5-5.1)
--- NOTE | 2024-07-01 15:22 | NUR ---
MD SPOKE WITH RN TO FOLLOW-UP WITH RADIOLOGY. PER MD HE SPOKE WITH RADIOLOGIST THIS AM IN REGARDS TO THE PATIENTS RECENT ULTRASOUND AND NO COMMENT ON PATIENTS RENAL ARTERY. RADIOLOGIST WAS GOING TO MAKE AN ADENDUM. NO RESULTS SEEN STILL AT THIS TIME. RN FOLLOWED UP WITH RADIOLOGY. MESSAGE WAS NEVER RETURNED TO MD OR STAFF THAT RADIOLOGY WAS UNABLE TO SEE THIS ON EXAM AND FURTHER STUDIES WERE NEEDED. RECOMMENED STUDY FOR RENOVASCULAR ULTRASOUND OR CT ANGIOGRAM, UNFORTUNATELY ULTRASOUND NEEDED PATIENT WILL NEED TO BE NPO FOR 8 HRS AND NO QUALIFIED STAFF ARE AVAILABLE UNTIL THURSDAY FIR THIS EXAM. MD NOTIFIED OF CONVERSATIONS AND EXAMS. PER MD WILL MONITOR PATIENTS BUN/CREATININE AND GFR FOR POSSIBILITY OF CT ANGIOGRAM IN THE FUTURE.
--- NOTE | 2024-07-01 18:11 | NUR ---
PATIENT UP SITTING IN THE CHAIR. PATIENT WORKED WITH OT AND EDUCATED ON EXERCISES FOR HER LEFT ARM SWELLING. PATIENT FAMILY IS OUT AT THIS TIME. DINNER PROVIDED. PATIENT STATES SHE WANTS TO WAIT A FEW MINUITES BEFORE EATING. WILL GIVE INSULIN WHEN PATIENT IS READY TO EAT.
--- NOTE | 2024-07-01 19:34 | NUR ---
REPORT RECEIVED FROM ERIC KELLY. PATIENT SITTING UP IN BED WITH FAMILY AT BEDSIDE. SUPPER HEATED FOR PATIENT. REVIEWED POC AND HS MEDICATIONS. CALL LIGHT IN REACH. NO OTHER NEEDS VERBALIZED AT THIS TIME.
--- NOTE | 2024-07-01 20:48 | NUR ---
ASSISTED PATIENT BACK TO BED WITH LINE AND TUBE MANAGEMENT. PATIENT PARTICIPATES IN ASSSEMENT. BOTH IVS PATENT WITH + BLOOD RETURN. LUE GLORIA DRESSING CHANGED. PATIENT REQUEST ERA HOSE OFF WHILE IN BED. ERA HOSE REMOVED BUT PATIENT AGREEABLE TO SCDS WHILE IN BED. CEFTRIAXONE INFUSING. REVIEWED PLAN OF CARE FOR SHIFT. DAUGHTERS IN ROOM AND POSITIVELY ENGAGED IN CARE. ORDER RECEIVED FROM DR. MARIEE TO DAYSI BUMEAlissa GTT.
--- NOTE | 2024-07-01 21:13 | NUR ---
AZITHROMYCIN HUNG AND INFUSING WITHOUT DIFFICULTY. CATH CARE COMPLETED AND CATH EDUCATION PROVIDED. PATIENT VERBALIZED UNDERSTANDING. SANDERS EMPTIED FOR 450ML YELLOW DILUTE URINE. NOW AT BEDSIDE. PATIENT DENIES PAIN OR NEEDS AT THIS TIME. CALL LIGHT IN REACH.
--- NOTE | 2024-07-01 22:52 | NUR ---
PATIENT RESTING WITH EYES CLOSED BUT RESPONDS TO THIS RN DIMMING LIGHTS. DENIES NEEDS, STATES "I AM GOOD, THANK YOU". CALL LIGHT IN REACH. SPOUSE RESTING IN ROOM.
[2024-07-02] VITALS (21 sets, daily range): BP systolic 153–189; BP diastolic 78–97
--- NOTE | 2024-07-02 00:13 | NUR ---
PATIENT WAKES TO NAME FOR ASSESSMENT. ENCOURAGED CONTINUES IS USE. ATTEMPTED TO WEAN OFF O2. PATIENT HAS BEEN 98-99% ON 1L. O2 FLOW TURNED OFF AND PATIENT DESATTED TO 86-87%. PLACED BACK ON 1L NC WITH IMPROVEMENT BACK TO 98%. SANDERS BAG EMPTIED FOR 250ML DILUTE YELLOW URINE. PATIENT DENIES PAIN OR NEEDS. SPOUSE REMAINS AT BEDSIDE. CALL LIGHT IN REACH.
--- NOTE | 2024-07-02 01:50 | NUR ---
PATIENT RESTING IN BED. ADJUSTING HOB INDEPENDENTLY THIS RN ROUNDED. DENIES NEEDS, CONCERNS OR PAIN. REMAINS ON 1LNC WITH SPO2 95% AT REST. HR IN THE 80S, SINUS RHYTHM ON MONITOR. CALL LIGHT IN REACH.
--- NOTE | 2024-07-02 05:00 | NUR ---
PATIENT WOKE EASILY TO NAME FOR ASSESSMENT. DENIES PAIN OR CONCERNS. BOTH IVS CONTINUE TO REMAIN PATENT WITH + BLOOD RETURN. PATIENT CONTINUES TO REST WITH 1L NC; SPO2 97-98%. HR RANGES FROM 70S-80S AT REST, SINUS RHYTHM. SBP HAS RANGED FROM 150S-180S DURING SHIFT. SANDERS BAG EMPTIED FOR 450ML CLEAR YELLOW URINE. SPOUSE REMAINS AT BEDSIDE RESTING. CALL LIGHT IN REACH. UPDATED PLAN OF CARE TO INCLUDE LAB DRAW IMMINENT FOR AM LABS.
[2024-07-02 05:43] LABS: BASOPHILS 0.7 % (0-2); EOSINOPHILS 3.7 % (0-6); HEMATOCRIT 27.5 % (35.0-50.0); HEMOGLOBIN 9.2 g/dL (12.0-18.0); LYMPHOCYTES 23.7 % (24-44); MCH 25.6 (27-36); MCHC 33.6 g/dl (30-36); MCV 76.1 fl (81-99); MONOCYTES 11.8 % (0-12); NEUTROPHILS 60.1 % (39-80); PLATELET COUNT 235 K/uL (140-440); RBC 3.61 M/ul (4.3-5.7); RDW 15.6 (10.5-15.0)
[2024-07-02 05:51] LABS: ANION GAP 5.3 (7-21); BUN/CREATININE RATIO 17.79 (6.0-28.6); CALCIUM 8.4 mg/dL (8.5-10.1); CREATININE, SERUM 1.63 mg/dL (0.55-1.02); POTASSIUM 3.3 mmol/L (3.5-5.1)
--- NOTE | 2024-07-02 07:45 | NUR ---
REPORT RECIVED FROM KAY HITCHCOCK. PATIENT RESTING IN BED ON MONITOR AT THIS TIME. HR 70'S AND BP ELEVATED 180'S SYSTOLIC. MD IS AWARE OF CONTINUED HIGH BLOOD PRESSURES. SEE EMAR FOR MEDICATION MANAGEMENT. PATIENTS AT THE BEDSIDE.
[2024-07-02] MEDS ORDERED: POTASSIUM CHLORIDE 10 MEQ TABCR PO ONE ×2 (09:15→16:30)
--- NOTE | 2024-07-02 09:42 | NUR ---
MD IN TO EXAMINE PATIENT WITH THIS RN. PATIENT ABD UPDATED ON PLAN OF CARE. UPDATED MD THAT PATIENT DOES SEE THE CUTTER AND EDGE TRIMMER IN [place] A NEW PATIENT FOR THIS PROVIDER. NO OTHER QUESTIONS AT THIS TIME. PATIENT SITTING UP IN THE CHAIR NOW. MORNING WEIGHT OBTAINED. PATIENT ATE BREAKFAST. PATIENT WILL WORK ON AQAPELLA AND IS BREATHING DEVICES AND LEFT HAND ARM EXERCISES WHILE UP IN THE CHAIR. PLAN FOR SHOWER. CALL LIGHT IN REACH. NO OTHER NEEDS AT THIS TIME.
--- NOTE | 2024-07-02 10:20 | NUR ---
THIS RN IN TO SET UP SHOWER FOR PATIENT TO GET INTO. PATIENT IVS WRAPPED UP TO KEEP FROM GETTING WET. THIS RN WILL BE IN THE ROOM TO CHANGE LINEN.
--- NOTE | 2024-07-02 12:15 | NUR ---
PATIENT UP AND SHOWERED. PATIENT WAS ABLE TO PROVIDED HER OWN SHOWER CARES. THIS RN CHANGED LILEN, CLEANED ROOM, AND THEN ASISSTED PATIENT AFTER SHOWER. PATIENT TO THE SINK TO BRUSH HER TEETH AND THEN TO THE CHAIR. PATIENTS HAIR COMBED AND DONE. PATIENT ERA HOSE AND SOCKS PALCED ON PATIENT. WARM BLANKET PROVIDED. BLOOD SUGAR DONE AND PATIENT SITTING UP EATING LUNCH NOW AT THIS TIME. PATIENT TOELRATED ACTIVITY WELL. PATIENT VERY THANKFUL FOR CARES. CALL LIGHT IN REACH.
--- NOTE | 2024-07-02 14:30 | NUR ---
RN IN TO GIVE MEDICATIONS. PATIENT SITTING IN CHAIR WATCHING TV. LEGS ELEVATED. SANDERS PUTING OUT CLEAR YELLOW URINE. UPDATED ON PLAN OF CARE.
[2024-07-02 15:20] LABS: ANION GAP 4.4 (7-21); BUN/CREATININE RATIO 16.56 (6.0-28.6); CALCIUM 8.6 mg/dL (8.5-10.1); CREATININE, SERUM 1.57 mg/dL (0.55-1.02); POTASSIUM 3.4 mmol/L (3.5-5.1)
--- NOTE | 2024-07-02 16:17 | NUR ---
PATIENT SITTING UP IN CHAIR WITH VISITORS AT THE BEDSIDE. PATIENT TURNED TO RA ON OXYGEN. WILL MONITOR FOR EFFECTIVENESS. PATIENT ELEVATING LEGS AND LEFT ARM TO IMPROVE EDEMA. VITALS AND ASSESSMENT DONE. NO CHANGES. CALL LIGHT IN REACH. PATIENT DENIES HEADACHE THIS AFTERNOON.
--- NOTE | 2024-07-02 16:27 | NUR ---
UPDATED MD OF AFTERNOON LAB RESULTS. SEE EMAR FOR MEDICATION CHANGES.
--- NOTE | 2024-07-02 18:00 | NUR ---
PATIENT DONE WITH DINNER. VISITORS PRESENT. PATIENT REMAINS UP IN THE CHAIR. PATIENT WORKING ON IS/AQAPELLA. PATIENT SANDERS EMPTIED.
--- NOTE | 2024-07-02 19:33 | NUR ---
REPORT RECEIVED FROM ROBIN REYSE. PATIENT SITTING UP IN CHAIR WHILE WATCHING TV. SPOUSE AT BEDSIDE. DENIES PAIN, NEEDS OR CONCERNS. CALL LIGHT IN REACH.
--- NOTE | 2024-07-02 19:53 | NUR ---
PATIENT NOTED TO BE DESATTING TO 86% ON 0.5LNC AND SUSTAINING. INCREASED O2 FLOW TO 1L WITH IMPROVEMENT TO 99-100%.
--- NOTE | 2024-07-02 20:59 | NUR ---
SBA FROM CHAIR TO BED. PATIENT TOLERATED ACTIVITY WELL. PATIENT REPORTS SHE SHOWERED TODAY AND IS TIRED TONIGHT. PATIENT WISHES TO LEAVE ERA HOSE ON. SCDS PLACED. BOTH IVS PATENT WITH BLOOD RETURN. PATIENT DENIES PAIN OR SOB. 1 UNIT OF SS INSULIN GIVEN FOR CBG OF 160. ABX HUNG AND INFUSING. DR. MARIEE IN TO ROUND ON PATIENT AND REVIEW PLAN OF CARE. SPOUSE REMAINS AT BEDSIDE. CONTINUES ON 1L NC WITH SPO2 99%.
--- NOTE | 2024-07-02 21:40 | NUR ---
PATIENT CALLED NURSES STATION, THIS RN INTO ROOM, PATIENT REPORTS LEFT IV SITE WITH ABX RUNNING IS PAINFUL, PATIENT IS NOTED TO BE IN MODERATE DISTRESS, IV INFUSION TURNED OFF, DRESSING TAKEN DOWN TO ASSESS, IV SITE FLUSHES WELL WITH NS FLUSH, DOES NOT DRAW BACK BLOOD, IV SITE REMOVED TIP INTACT. PATIENT BREATHING AT 30/MIN AND FLINCHES WHEN TOUCH LIGHTLY AROUND AREA OF REOMVED IV SITE. PRIMARY RN NOTIFIED CORETTA Rodriguez, SHE IS CALLING TO NOTIFY. ICE BACK PREPARED AND PLACED.
--- NOTE | 2024-07-02 22:00 | NUR ---
NOTIFIED BY ROBIN CONNELLY ABOUT PATIENT'S IV. SITE HAD BEEN FLUSHED WITH BLOOD RETURN BETWEEN ABX INFUSIONS. NO ERYTHEMA NOTED TO ARM BUT PATIENT REPORTS PAIN TO TOUCH AND RATES PAIN 8/10; DESCRIBES BURNING. PATIENT'S LUE HAS BEEN EDEMATOUS. NO INFILTRATION SITE NOTED. REVIEWED WITH DR. MARIEE, HE REQUESTED THIS RN CONSULT PHARMACIST. CALL PLACED TO PHARMACIST JANEEN. EXPLAINED MEDICATION, AND SWOLLEN LUE WHERE NO INFILTRATION SITE IS NOTED. JANEEN REPORTS THERE IS NO ANTIDOTE FOR AZITHROMYCIN; DEXTROSE WOULD BE HYALURONIDASE INJECTIONS. IN LIGHT OF NOT VISUALIZING AN INFILTRATION SITE, WE CONFERRED THERE ISNT A WAY TO KNOW WHERE TO FOCUS ANY HYALURONIDASE INJECTIONS. PHARMACIST RECOMMENDATION WAS ICE TO SITE 15-20MIN QID X 3-4DAYS AND CONTINUE TO MONITOR SITE. UPDATED DR. MARIEE ON RECOMMENDATION. IF INFILTRATION SITE APPEARS, ORDER TO BE PLACED FOR HYALURONIDASE INJECTIONS. PATIENT REQUESTED PAIN MEDICATIONS. ULTRAM GIVEN PER EMAR. EDUCATION PROVIDED TO PATIENT ON S/S INFILTRATION. PATIENT VERBALIZED UNDERSTANDING. ABX NOW INFUSING IN LEFT WRIST IV SITE.
--- NOTE | 2024-07-02 22:29 | NUR ---
PATEINT HEARD STATING "OW" FROM HER ROOM. THIS RN IMMEDIATELY TO ROOM. PATIENT C/O OF THE SAME TYPE OF PAIN AND BURNING AT L WRIST IV SHE EXPERIENCED IN LUE DURING AZITHROMYCIN INFUSION AT THAT SITE. SHE REPORTS IT RUNS UP HER FOREARM. NO ERYTHEMA OR SWELLING NOTED TO L FA. PATIENT REPORTS BURNING IN LUE HAS RESOLVED. ABX PAUSED AND IV FLUSHED EASILY WITH RAPID BLOOD RETURN ON ASPIRATION. ICE PACK PLACED OVER LEFT FOREARM AND ABX RE-STARTED AND NEARLY COMPLETE. RE-ASSESSED LUE. NO SWELLING, EYTHEMA OR DISCOLERATION NOTED. CAP REFILL <3 SECONDS AND PATIENT DENYING PAIN.
--- NOTE | 2024-07-02 22:40 | NUR ---
SANDERS CATHETER BAG EMPTIED FOR 650ML DILUTE YELLOW URINE. ABX COMPLETE. PATIENT REPORTS BURNING HAS IMPROVED NOW THAT ABX IS STOPPED. IV SITE FLUSHED EASILY AND AGAIN RAPID BLOOD RETURN NOTED ON ASPIRATION. NO S/S INFILTRATION NOTED TO L WRIST IV SITE OR FOREARM; HOWEVER SITE IS PAINFUL TO TOUCH IN A LINEAR PATTERN UP FOREARM. LUE ELEVATED WITH PILLOW SUPPORT AND ICE PACK PLACED ON LEFT FORARM. PATIENT VERBALIZED UNDERSTANDING TO NOTIFY THIS RN OF ANY INCREASED PAIN/BURNING OR S/S OF INFILTRATION. REVIEWED ABX WITH PATIENT AND THAT IT IS IN DEXTROSE WHICH MAY BE IRRITATING HER VEIN. HOWEVER, THIS RN WILL CONTINUE TO MONITOR BOTH IV SITES FOR INFILTRATION. PATIENT VERBALIZED UNDERSTANDING.
[2024-07-03] VITALS (19 sets, daily range): BP systolic 139–183; BP diastolic 77–101
--- NOTE | 2024-07-03 00:03 | NUR ---
PATIENT RESTING WITH EYES CLOSED BUT WAKES TO NAME. LEFT FA AND LEFT UPPER ARM RE-ASSESSED. NO S/S INFILTRATION NOTED. PRE-EXISTING EDEMA UNCHANGED BUT NO NEW SWELLING NOTED FROM FORMER IV SITE/UPPER ARM OR EXISTING IV SITE/FORARM. NO ERYTHEMA, CAP REFILL <3SEC. PATIENT REPORTS BURNING HAS IMPROVED AND NO LONGER PAINFUL. PATIENT CONTINUES TO REST WITH LUE ELEVATED. L WRIST IV FLUSHED WITH BRISK BLOOD RETURN ON ASPIRATION. NO COMPLAINTS OF PAIN UPON NS FLUSH. CALL LIGHT IN REACH. PATIENT REMAINS ON 1L NC WITH SPO2 98%. HR IN THE 80S, SINUS RHYTHM.
--- NOTE | 2024-07-03 01:58 | NUR ---
PATIENT NOTED TO BE DESATTING ON MONITOR, SPO2 85-87%. PATIENT FOUND WITH NASAL CANNULA RESTING ON THE BRIDGE OF HER NOSE. NC REPLACED IN NARES WITH IMPROVEMENT IN SPO2 TO 98-99%.
--- NOTE | 2024-07-03 03:27 | NUR ---
PATIENT RESTING IN BED WITH EYES CLOSED. RESPIRATIONS EVEN AND UNLABORED. HR IN THE 70S SINUS RHYTHM ON MONITOR. SPO2 100% 1L NC. CALL LIGHT IN REACH. SPOUSE RESTING IN ROOM.
--- NOTE | 2024-07-03 04:10 | NUR ---
PATIENT RESTING IN BED WITH EYES CLOSED. RESPIRATIONS EVEN AND UNLABORED. O2 SATS ON 1.5L RANGES BETWEEN 89-90%. INCREASED O2 FLOW TO 2L WITH IMPROVEMENT TO 92%
[2024-07-03 05:12] LABS: BASOPHILS 0.6 % (0-2); EOSINOPHILS 4.5 % (0-6); HEMATOCRIT 27.7 % (35.0-50.0); HEMOGLOBIN 9.3 g/dL (12.0-18.0); MCH 25.6 (27-36); MCHC 33.7 g/dl (30-36); MONOCYTES 10.5 % (0-12); NEUTROPHILS 53.4 % (39-80); PLATELET COUNT 241 K/uL (140-440); RBC 3.64 M/ul (4.3-5.7); RDW 15.2 (10.5-15.0)
--- NOTE | 2024-07-03 05:20 | NUR ---
LAB IN ROOM TO DRAW BLOOD. PATIENT RESTING IN BED. ASSESSMENT CHARTED. LUE ASSESSED. SLIGHT REDUCTION IN ESTABLISHED LUE EDEMA. NO S/S OF IV INFILTRATION AT PREVIOUS IV SITE OR CURRENT IV SIGHT. CAP REFILL< 3 SECONDS. NO ERYTHEMA NOTED. PATIENT DENIES PAIN. AREA AROUND FORMER AND CURRENT IV SITES PALPATED AND PATIENT CONTINUED TO DENY PAIN. L WRIST IV FLUSHED EASILY WITH BRISK BLOOD RETURN. PATIENT CONTINUES ON 1L NC. SINUS RHYTHM ON MONITOR WITH HR IN THE 70S. PT DENIES NEEDS, CONCERNS OR PAIN AT THIS TIME. CALL LIGHT IN REACH.
[2024-07-03 05:45] LABS: ALBUMIN 1.8 g/dL (3.4-5.0); ALBUMIN/GLOBULIN RATIO 0.41 (1.1-2.4); ANION GAP 4.4 (7-21); BILIRUBIN, TOTAL 0.2 mg/dL (0.2-1.0); BUN/CREATININE RATIO 17.5 (6.0-28.6); CALCIUM 8.6 mg/dL (8.5-10.1); CREATININE, SERUM 1.6 mg/dL (0.55-1.02); POTASSIUM 3.4 mmol/L (3.5-5.1); PROTEIN, TOTAL 6.2 g/dL (6.4-8.2)
--- NOTE | 2024-07-03 06:29 | NUR ---
DR. MARIEE NOTIFIED OF NO S/S OF INFILTRATION NOTED TO IV SITES AND PATIENTS REACTION TO ABX IN A PATIENT IV WITH + BLOOD RETURN.
[2024-07-03] MEDS ORDERED: POTASSIUM CHLORIDE 10 MEQ TABCR PO ONE (08:00)
--- NOTE | 2024-07-03 09:56 | NUR ---
PATIENT RESTING IN BED THIS AM AND STATES SHE IS DOING WELL. MEDS GIVEN PER EMAR WHICH INCLUDED 3 MG IV BUMEX DOSE. PT STILL HAS SANDERS CATH DRAINING CLEAR DILUTE YELLOW URINE. PATIENT HAS SIGNFICANT IMPROVEMENT IN PERIPHERAL EDEMA, WITH STILL SOME NOTED IN LOWER LEGS BUT MUCH IMPROVED. LEFT ARM EDEMA ALSO IMPROVED. RIGHT HAND DISCOLORATION IS IMPROVING. SCDs AND ERA HOSE HAVE CONTINUED TO BE UTILIZED AND SCDs TAKEN OFF AT THIS TIME BUT ERA HOSE REMAIN ON. PT DENIES SOB. PT ON 0.5 L OF OXYGEN STILL, AND WITHOUT IT, SHE WILL INTERMITTENTLY DROP TO MID TO LOW 80s ON SP02. REMAINS IN NSR 80s. BP 170/95. WILL OBTAIN STANDING WEIGHT WHEN PATIENT IS UP OUT OF BED THIS AM. PT'S GERMANIA IN ROOM AND ATTENTIVE TO PATIENT.
--- NOTE | 2024-07-03 11:27 | NUR ---
DR. MARIEE IN TO SEE PATIENT AND PLAN OF CARE DISCUSSED. PATIENT UP TO WEIGHT AND IS 88.6 KG TODAY. SANDERS DRAINING CLEAR DILUTE URINE. PT NOW ON ROOM AIR AND WILL MONITOR SP02. WHILE RESTING IN BED, PT STILL NEEDING SMALL AMOUNTS OF OXYGEN. PT USING IS BY HERSELF WELL. PT ALSO AMBULATES INTO BATHROOM AND DOES HER OWN JEFFERY CARE WITH SOAP AND WASH CLOTH. BED LINEN CHANGED.
[2024-07-03 13:22] LABS: ANION GAP 4.8 (7-21); BUN/CREATININE RATIO 16.76 (6.0-28.6); CREATININE, SERUM 1.67 mg/dL (0.55-1.02); POTASSIUM 3.8 mmol/L (3.5-5.1)
--- NOTE | 2024-07-03 19:34 | NUR ---
REPORT RECEIVED FROM ROBIN GURROLA. PATIENT SITTING UP IN CHAIR VISITING WITH HER . SHE WISHES TO STAY UP LONGER. REQUESTED TEA AND TEA PROVIDED. PATIENT ATE 100% OF SUPPER. DENIES PAIN. PATIENT IS ON ROOM AIR WITH SPO2 AT 95-97%. PATIENT REPORTS SHE HAD A GOOD DAY. PLAN OF CARE REVIEWED. PATIENT DENIES QUESTIONS OR CONCERNS AT THIS TIME. CALL LIGHT IN REACH.
--- NOTE | 2024-07-03 20:38 | NUR ---
PATIENT AMBULATED IN ROOM TO BATHROOM TO ATTEMPT A BOWEL MOVEMENT. NO BM. PATIENT COMPLETED CATH CARE. BACK TO BED. SCDS ON. OFFERED STOOL SOFTENERS BUT PATIENT DECLINED. PATIENT REPORTS SHE DOES NOT HAVE DAILY BMS. SHE IS ALSO CONCERNED BECAUSE HISTORICALLY WITH ABX SHE GETS DIARRHEA. EDUCATION PROVIDED BUT PATIENT WISHES TO WAIT UNTIL TOMORROW. IV ABX INFUSING. CALL LIGHT IN REACH.
--- NOTE | 2024-07-03 21:19 | NUR ---
PATIENT NOTED TO BE DESATTING WHILE AT REST. SPO2 ON MONITOR SUSTAINED 87%. PLACED ON 1L NC WITH IMPROVEMENT TO 95%.
--- NOTE | 2024-07-03 23:55 | NUR ---
PATIENT WOKE TO NAME FOR ASSESSMENT. DENIES PAIN, CONCERNS OR NEEDS AT THIS TIME. SANDERS BAG EMPTIED FOR 300ML DILUTE YELLOW URINE. O2 FLOW DECREASED TO 0.5L NC WITH SATS MAINTAINING AT 91%. SPOUSE RESTING AT BEDSIDE. CALL LIGHT IN REACH.
[2024-07-04] VITALS (14 sets, daily range): BP systolic 124–184; BP diastolic 79–94
--- NOTE | 2024-07-04 00:21 | NUR ---
O2 FLOW INCREASED BACK UP TO 1LNC FOR SATS MAINTAINING 88-89%. IMPROVMENT IN SPO2 TO 95%.
--- NOTE | 2024-07-04 02:05 | NUR ---
ERRONEOUS BP MEASUREMENT NOTED ON MONITOR. PATIENT WOKE TO NAME. DENIES NEEDS TO CONCERNS. BP CYCLED FOR 175/89 (115).
--- NOTE | 2024-07-04 05:15 | NUR ---
PATIENT WOKE EASILY FOR ASSESSMENT. DENIED PAIN, NEEDS OR CONCERNS. SANDERS EMPTIED FOR 500ML DILUTE YELLOW URINE. L WRIST PIV FLUSHED EASILY WITH BRISK BLOOD RETURN. PATIENT HAS BEEN IN SINUS RHYTHM ON MONITOR WITH HR 70-80S. CALL LIGHT IN REACH.
[2024-07-04 05:31] LABS: BASOPHILS 0.8 % (0-2); EOSINOPHILS 4.7 % (0-6); HEMATOCRIT 27.9 % (35.0-50.0); HEMOGLOBIN 9.4 g/dL (12.0-18.0); LYMPHOCYTES 36.3 % (24-44); MCH 25.7 (27-36); MCHC 33.8 g/dl (30-36); MCV 75.9 fl (81-99); MONOCYTES 10.5 % (0-12); NEUTROPHILS 47.7 % (39-80); PLATELET COUNT 243 K/uL (140-440); RBC 3.68 M/ul (4.3-5.7); RDW 15.2 (10.5-15.0)
[2024-07-04 05:49] LABS: ALBUMIN 1.8 g/dL (3.4-5.0); ALBUMIN/GLOBULIN RATIO 0.4 (1.1-2.4); ANION GAP 3.6 (7-21); BILIRUBIN, TOTAL 0.2 mg/dL (0.2-1.0); BUN/CREATININE RATIO 21.47 (6.0-28.6); CALCIUM 8.4 mg/dL (8.5-10.1); CREATININE, SERUM 1.63 mg/dL (0.55-1.02); POTASSIUM 3.6 mmol/L (3.5-5.1); PROTEIN, TOTAL 6.3 g/dL (6.4-8.2)
[2024-07-04] MEDS ORDERED: SODIUM FERRIC GLUCONAT/SUCROSE 125 MG in SODIUM CHLORIDE 0.9% 100 ML IV SCH (09:00)
[2024-07-04] MEDS ORDERED: SODIUM CHLORIDE 0.9% IV SCH (09:00)
[2024-07-04] MEDS ORDERED: SENNOSIDES/DOCUSATE 1 EA TAB PO SCH (09:00)
[2024-07-04] MEDS ORDERED: METOPROLOL TARTRATE 25 MG TAB PO SCH (09:00)
[2024-07-04] MEDS ORDERED: SODIUM FERRIC GLUCONAT IV SCH (09:00)
[2024-07-04] MEDS ORDERED: SUCROSE IV SCH (09:00)
[2024-07-04] MEDS ORDERED: BUMETANIDE 1 MG/4 ML VIAL IV SCH (09:00)
[2024-07-04] MEDS ORDERED: BUMETANIDE 1 MG TAB PO SCH (09:00)
--- NOTE | 2024-07-04 09:11 | NUR ---
DR. VERMA IN TO SEE PATIENT AND PLAN OF CARE DISCUSSED. PT TO HAVE IRON INFUSION TODAY AND ALSO START ON METOPRLOL.
--- NOTE | 2024-07-04 13:35 | NUR ---
UR CONCURRENT REVIEW: MCG-PER MCG REVIEW MEETS GL DAY 2 FOR DC ODS [facility] INPT 06/27/24 ORDER MATCHES REG AUTH # [id number]. UPDATED CLINICALS FAXED TO [facility] DISCHARGE TO HOME WHEN STABLE PER MD MONITOR BETA JUAN EFFECT ON BP. IF STABLE DC TODAY OR 07/05/24 IN AM
--- NOTE | 2024-07-04 14:28 | NUR ---
VISITED DURING SPIRITUAL CARE ROUNDS. PT IN OVERALL GOOD SPIRITS, NO IMMEDIATE NEEDS. GRAPHICS PRODUCTION SPECIALIST PROVIDED SUPPORTIVE PRESENCE, ENCOURAGE FOCUS ON PRESENT, PROVIDED PRAYER. PT EXPRESSED GRATITUDE, HOPE.
--- NOTE | 2024-07-04 15:38 | NUR ---
SPOKE WITH PATIENT REGARDING PT. PATIENT CHOICES PRESENTED. STATES SHE WOULD LIKE TO STAY NEAR [place], [place], SHE LIVES [place] TO [place]. DISCUSSED [facility] PHYSICAL THERAPY. STATEES SHE WOULD LIKE TO DO OUTPATIENT THERAPY THERE. ORDERS LEFT AT DESK FOR DR. VERMA TO COMPLETE.
--- NOTE | 2024-07-04 18:49 | NUR ---
PATIENT RESTING IN CHAIR AT THIS TIME AND HAS FINISHED HER DINNER. PATIENT IS NOW A MED/SURG PATIENT BUT REMAINS IN 126. SANDERS D/C TODAY AND PATIENT ABLE TO VOID WITHOUT PROBLEM SINCE. BLOOD PRESSURES REMAIN ELEVATED BUT NOT HIGH THEY WERE- MOST RECENT 159/92. PT'S AMAN HAS ARRIVED AGAIN AND PLANS TO STAY THE NIGHT WITH HER. PATIENT HAS SPENT MOST OF THE DAY ON ROOM AIR AND HAD SMALL AMOUNT OF TIME WHEN SLEEPING IN CHAIR THAT SHE HAD DESATURATIONS, BUT OTHERWISE SP02 HAS BEEN STABLE ON ROOM AIR. EDEMA REMAINS IMPROVED IN LEGS. PT HOPEFUL TO D/C HOME TOMORROW. PATIENT REC'D CALL FROM NEPHROLOGY OFFICE TODAY AND THEY CAN SEE HER ON JULY 14, 2024.
--- NOTE | 2024-07-04 20:45 | NUR ---
SHIFT REPORT RECEIVED FROM ROBIN GURROLA. SHIFT ROUNDING FOUND PATIENT UP IN CHAIR WHILE VISITING WITH HER . REVIEWED PLAN OF CARE. RETURNED FOR HS MEDICATIONS AND ASSESSMENT. PT REQUIRED 1 UNIT OF HS SS INSULIN. IV PATENT AND ABX HUNG/INFUSING. PATIENT REPORTS SHE WOULD LIKE TO SLEEP IN THE CHAIR TONIGHT THE BED IS BECOMING UNCOMFORTABLE. PATIENT DENIES PAIN, NEEDS OR CONCERNS. CALL LIGHT IN REACH.
[2024-07-05 00:01] VITALS: BP 167/86
--- NOTE | 2024-07-05 00:04 | NUR ---
PATIENT WAKES BRIEFLY TO THIS RN IN ROOM. DENIES NEEDS. PATIENT CONTINUES TO REST IN CHAIR WITH CALL LIGHT IN REACH. O2 SATS 97-100% ROOM AIR WHILE RESTING. VS CHARTED.
[2024-07-05 02:00] VITALS: BP 162/85
--- NOTE | 2024-07-05 02:36 | NUR ---
PATIENT RESTING IN CHAIR. APPEARS RELAXED. RESPIRATIONS EVEN AND UNLABORED. REMAINS ON MONITOR WITH HR IN THE 70S, SINUS RHYTHM. SOP2 RANGES FORM 94-99% ON RA. SPOUSE SLEEPING IN ROOM. CALL LIGHT IN REACH.
[2024-07-05 04:02] VITALS: BP 159/80
--- NOTE | 2024-07-05 04:13 | NUR ---
PATIENT WOKE EASILY TO NAME FOR ASSESSMENT. DENIES PAIN, NEEDS OR CONCERNS. UPDATED ON POC FOR REMAINDER OF SHIFT. PATIENT HAS BEEN OFF SUPPLEMENTAL O2 THIS SHIFT UNTIL AFTER ASSESSMENT AND BACK TO REST. PATIENT BEGAN TO DESAT TO 87-89% WITH SOME INCREASE TO LOW 90S BUT NOT SUSTAINED. PLACED BACK ON NC AT 1L WITH SAT IMPROVEMENT TO LOW 90S.
[2024-07-05 05:21] LABS: BASOPHILS 0.7 % (0-2); EOSINOPHILS 5.4 % (0-6); HEMATOCRIT 27.2 % (35.0-50.0); HEMOGLOBIN 9.2 g/dL (12.0-18.0); LYMPHOCYTES 31.7 % (24-44); MCH 25.7 (27-36); MCHC 33.9 g/dl (30-36); MCV 75.8 fl (81-99); MONOCYTES 12.2 % (0-12); PLATELET COUNT 248 K/uL (140-440); RBC 3.58 M/ul (4.3-5.7); RDW 15.1 (10.5-15.0)
--- NOTE | 2024-07-05 05:25 | NUR ---
PATIENT STILL RESTING IN CHAIR. SPOUSE LEFT FOR WORK. ENCOURAGED PATIENT TO USE RESTROOM SHE HASN'T VOIDED IN AWHILE. PATIENT DENIES NEED TO VOID. AGREES TO USE CALL LIGHT WHEN READY.
[2024-07-05 05:36] LABS: ALBUMIN 1.9 g/dL (3.4-5.0); ALBUMIN/GLOBULIN RATIO 0.42 (1.1-2.4); BILIRUBIN, TOTAL 0.1 mg/dL (0.2-1.0); BUN/CREATININE RATIO 23.52 (6.0-28.6); CALCIUM 8.3 mg/dL (8.5-10.1); CREATININE, SERUM 1.53 mg/dL (0.55-1.02); MAGNESIUM 2.1 mg/dL (1.8-2.4); PROTEIN, TOTAL 6.4 g/dL (6.4-8.2)
--- NOTE | 2024-07-05 06:44 | NUR ---
PATIENT TO BR TO VOID 600ML CLEAR YELLOW URINE. BRUSHED TEETH. TODAY'S WEIGHT IS 87.45 KG. BACK TO CHAIR CALL LIGHT IN REACH. CURRENTLY ON ROOM AIR SATTING AT 99%.
--- NOTE | 2024-07-05 06:46 | NUR ---
DR. BAYRON SHAHFIED OF POTASSIUM LEVEL OF 3.0. ORDER RECEIVED FOR 40MEQ POTASSIUM PO.
[2024-07-05] MEDS ORDERED: POTASSIUM CHLORIDE 10 MEQ TABCR PO ONE (07:00)
[2024-07-05 08:00] VITALS: BP 146/89
--- NOTE | 2024-07-05 08:29 | NUR ---
PATIENT SITTING UP IN CHAIR AND RESTING. BREAKFAST BROUGHT IN AND SHE IS EATING. BP THIS AM 146/89. PATIENT DENIES ANY PAIN AT THIS TIME. PT DENIES ANY PAIN THIS AM. PT WILL LIKELY D/C HOME AND F/U APPT WITH DR. ANGEL TO BE MADE.
[2024-07-05 08:48] VITALS: BP 146/89
--- NOTE | 2024-07-05 09:20 | NUR ---
DISCUSSED PLAN TO DC TO HOME TODAY. ADDRESS AND PHONE NUMBER PROVIDED TO [facility]. ORDERS FAXED TO [facility] AT [phone]. PHONE NUMBER FOR [facility] ALSO PROVIDED. DENIES OTHER CM NEEDS.
--- NOTE | 2024-07-05 09:41 | NUR ---
DR. VERMA IN ROOM AND EVALUATES PATIENT. PATIENT TO D/C HOME TODAY AND IS FEELING GOOD ABOUT THIS. PATIENT CALLED HER AND HE WILL BE ARRIVING TO PICK HER UP AROUND NOON TODAY. SP02 IS 99% CURRENTLY ON ROOM AIR.
[2024-07-05] MEDS ORDERED: METOPROLOL TART25 MG PO (09:50)
[2024-07-05] MEDS ORDERED: BUMETANIDE1 MG PO (09:51)
[2024-07-05] MEDS ORDERED: JARDIANCE10 MG PO (09:52)
== END 2024-07-05 12:00 | disposition home or self-care (01) | DRG 291 ==
LOC: ED 21:37 → CCU 21:39
PROVIDERS: Emergency Medicine; Family Medicine; ADMIT Student in an Organized Health Care Education/Training Program; ATTEND Student in an Organized Health Care Education/Training Program
DX: I11.0 Hypertensive heart disease with heart failure (principal); I50.33 Acute on chronic diastolic (congestive) heart failure; J96.01 Acute respiratory failure with hypoxia; J18.9 Pneumonia, unspecified organism; I31.39 Other pericardial effusion (noninflammatory); E11.9 Type 2 diabetes mellitus without complications; F39 Unspecified mood [affective] disorder; E78.5 Hyperlipidemia, unspecified; L53.9 Erythematous condition, unspecified; R10.9 Unspecified abdominal pain; D64.89 Other specified anemias; E87.6 Hypokalemia; Z79.84 Long term (current) use of oral hypoglycemic drugs
CPT/HCPCS: 36415; 51798; 70450; 70551; 71045; 71260; 74177; 76770; 80048; 80053; 80061; 81001; 83036; 83735; 83880; 84484; 84703; 85025; 87040; 93005; 93010; 93306; 93970; 93971; 94667; 94668; 94762; 94799; 96374; 97110; 97116; 97161; 97165; 97530; 97535; 99285-25; A9270; J0360; J0456; J0696; J1650; J1815; J1938; J2405; J3490; J7060; Q0138; Q3014; Q9967